=== PATIENT | female | born 1945 | race Caucasian/White ===

== ENCOUNTER 2019-06-01 08:33 | Day surgery (SDC) | payer OTHER, MEDICARE ==
[2019-06-01 08:55] LABS: EOS % 2.1 % (0-4.5); HEMATOCRIT 39.7 % (32.4-45.2); HEMOGLOBIN 13.2 GM/dL (10.7-15.3); LYMPH % 52.8 % (8-40); MCH 30.7 pg (25.7-33.7); MCHC 33.2 g/dl (32.0-36.0); MEAN CELL VOLUME 92.3 fl (80-96); MEAN PLT VOLUME 6.4 fl (7.5-11.1); MONO % 8.2 % (3.8-10.2); NEUT % 35.9 % (42.8-82.8); PLATELET COUNT 231 K/MM3 (134-434); RDW 13.6 % (11.6-15.6); WHITE BLOOD COUNT 6.1 K/mm3 (4.0-10.0)
[2019-06-01 09:06] VITALS: BMI 19.8
[2019-06-01 09:16] LABS: INR 0.88 (0.83-1.09); PROTHROMBIN TIME (PATIENT) 10.4 SEC (9.7-13.0)
[2019-06-01 11:13] VITALS: TEMP 98.3
[2019-06-01 11:54] LABS: ANISOCYTOSIS 0; MACROCYTOSIS 0; PLATELET ESTIMATE NORMAL
[2019-06-01 12:17] VITALS: BP 158/71; PULSE 76
== END 2019-06-01 12:10 | disposition home or self-care (01) ==
LOC: JRADIR 08:33
PROVIDERS: ATTEND Internal Medicine
PROC: 3E0R3BZ Introduction of Anesthetic Agent into Spinal Canal, Percutaneous Approach (ICD-10-PCS; principal; 2019-06-01)
PROC: 3E0R33Z Introduction of Anti-inflammatory into Spinal Canal, Percutaneous Approach (ICD-10-PCS; 2019-06-01)
DX: M54.89 Other dorsalgia (principal); M54.2 Cervicalgia; G89.29 Other chronic pain; M06.9 Rheumatoid arthritis, unspecified
CPT/HCPCS: 36415; 62322; 77003-TC-FY; 85025; 85610

== ENCOUNTER 2019-09-27 10:01 | Emergency (ER) | payer OTHER, MEDICARE ==
[2019-09-27 10:18] VITALS: BP 126/68; PULSE 86; BMI 19.6
[2019-09-27] MEDS ORDERED: DIPHTH,PERTUSS(ACELL),TET 0.5 ML DISP.SYRIN IM ONE ×2 (11:20→11:35)
--- NOTE | 2019-09-27 11:32 | PDOC ---
History of Present Illness - General Chief Complaint: Bite Stated Complaint: CAT SCRATCH Time Seen by Provider: 09/27/19 11:13 - History of Present Illness Initial Comments: 09/27/19 11:28 74-year-old female with a past medical history of hypertension presents for evaluation of a cat scratch on her left wrist. 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 This occurred just prior to arrival. She is not current on tetanus at this time. Past History - Past Medical History Allergies/Adverse Reactions: Allergies Allergy/AdvReac Type Severity Reaction Status Date / Time Antihistamines - Alkylamine AdvReac Intermediate tacchycardi Verified 09/27/19 10:15 a lidocaine AdvReac Intermediate tacchycardi Verified 09/27/19 10:15 a procaine [From Novocain] AdvReac Intermediate tacchycardi Verified 09/27/19 10: 15 a Home Medications: Ambulatory Orders Amlodipine Besylate 2.5 mg PO DAILY 06/01/19 Codeine Phos/ASA/Caffein/Butal [Fiorinal/Codeine #3 (Nf)] 1 ea PO PRN 06/01/19 Esomeprazole Magnesium [Nexium 24Hr] 40 mg PO DAILY 06/01/19 Losartan Potassium 50 mg PO DAILY 06/01/19 [place]pole-3 Fatty Acids [[place]-3] 1,000 mg PO BID 06/01/19 Simvastatin 20 mg PO DAILY 06/01/19 Zolpidem Tartrate [Ambien] 10 mg PO HS 06/01/19 Amox-Tr/K Cl [Augmentin - 875Mg Tablet] 1 tab PO BID #20 tablet 09/27/19 Cancer: Yes (left breast ca 1990,right breast 1994) COPD: No Disorders: Yes (reflux) HTN: Yes Hypercholesterolemia: Yes - Surgical History Appendectomy: Yes - Psycho Social/Smoking Cessation Hx Smoking History: Never smoked Have you smoked in the past 12 months: No If you are a former smoker, when did you quit?: 1990 Hx Alcohol Use: No Drug/Substance Use Hx: No Substance Use Type: None Hx Substance Use Treatment: No Review of Systems - Review of Systems Constitutional: Yes: See HPI *Physical Exam - Vital Signs Last Vital Signs Temp Pulse Resp BP Pulse Ox 86 17 126/68 100 09/27/19 10:16 09/27/19 10:16 09/27/19 10:16 09/27/19 10:16 - Physical Exam 09/27/19 11:29 There is a superficial excoriation on the volar aspect of the left wrist no gross sensorimotor deficit Medical Decision Making - Medical Decision Making 09/27/19 11:30 The area was cleaned with soap and water. No indication of secondary infection at this time. Watchful waiting and a prescription for Augmentin was given. Patient was instructed not to take the medication until she believes there may be an infection she was also advised to follow-up with her primary care doctor. Her tetanus shot was updated today. Discharge - Discharge Information Problems reviewed: Yes Clinical Impression/Diagnosis: Cat scratch Condition: Stable Disposition: HOME - Admission No - Additional Discharge Information Prescriptions: Amox-Tr/K Cl [Augmentin - 875Mg Tablet] 1 tab PO BID #20 tablet - Follow up/Referral Referrals: Xi Soto MD [Staff Physician] - - Patient Discharge Instructions Additional Instructions: Please follow-up with your primary care doctor in 2 to 3 days for further evaluation and treatment options. Without fail please follow-up with your doctor. Return to the emergency room for further issues. You have a prescription for Augmentin. You may hold onto the prescription and start the medication if you feel there is infection developing in the area of the scratch. Please keep the area clean with soap and water and left open to air as much as possible. - Post Discharge Activity
== END 2019-09-27 11:42 | disposition home or self-care (01) ==
LOC: JER 10:01 → JERFT 10:01
PROC: 3E0234Z Introduction of Serum, Toxoid and Vaccine into Muscle, Percutaneous Approach (ICD-10-PCS; principal; 2019-09-27)
DX: S60.812A Abrasion of left wrist, initial encounter (principal); W55.03XA Scratched by cat, initial encounter; Y93.89 Activity, other specified; Y92.89 Other specified places as the place of occurrence of the external cause; Z88.8 Allergy status to other drugs, medicaments and biological substances; I10 Essential (primary) hypertension; K21.9 Gastro-esophageal reflux disease without esophagitis; Z87.891 Personal history of nicotine dependence; E78.00 Pure hypercholesterolemia, unspecified; Z85.3 Personal history of malignant neoplasm of breast
CPT/HCPCS: 90715; 99281-25

== ENCOUNTER 2022-01-31 21:26 | Inpatient (IN) | payer OTHER, MEDICARE ==
[2022-01-31] MEDS ORDERED: diazePAM 5 MG TABLET PO ONE (22:03)
[2022-01-31] MEDS ORDERED: diazePAM 5 MG TABLET ONE (22:11)
[2022-01-31] MEDS ORDERED: ACETAMINOPHEN 1000 MG/100 ML BAG IVPB ONE (22:11)
[2022-01-31] MEDS ORDERED: ACETAMINOPHEN INJECTION 100 ML IVPB ONE (22:12)
[2022-01-31 22:20] LABS: BASO % 0.3 % (0-2.0); EOS % 0.5 % (0-4.5); HEMATOCRIT 38.7 % (32.4-45.2); LYMPH % 12.4 % (8-40); MCH 30.7 pg (25.7-33.7); MCHC 33.6 g/dl (32.0-36.0); MEAN CELL VOLUME 91.5 fl (80-96); MEAN PLT VOLUME 6.2 fl (7.5-11.1); NEUT % 81.8 % (42.8-82.8); PLATELET COUNT 293 10^3/uL (134-434); RBC 4.23 M/mm3 (3.60-5.2); RDW 13.6 % (11.6-15.6); WHITE BLOOD COUNT 11.3 K/mm3 (4.0-10.0)
[2022-01-31 22:43] LABS: ALBUMIN 4.3 g/dl (3.4-5.0); BLOOD UREA NITROGEN 23.5 mg/dL (7-18); CALCIUM 9.5 mg/dL (8.5-10.1); MAGNESIUM 2.3 mg/dL (1.8-2.4)
[2022-01-31 22:46] LABS: CREATININE 0.8 mg/dL (0.55-1.3)
[2022-01-31 22:48] LABS: BILIRUBIN,TOTAL 0.4 mg/dL (0.2-1); TOT PROT 7.8 g/dl (6.4-8.2)
[2022-01-31 22:50] LABS: EPI CELLS 25 /uL (0-25.1); HYALINE CASTS 0 /uL (0-3.1); PH,URINE 8.5 (5.0-8.0); URINE APPEARANCE CLEAR; URINE BACTERIA 95 /uL (0-1359); URINE BILIRUBIN NEGATIVE (NEGATIVE); URINE COLOR YELLOW; URINE GLUCOSE (UA) NEGATIVE (NEGATIVE); URINE KETONE NEGATIVE (NEGATIVE); URINE LEUK ESTERASE 1+ (NEGATIVE); URINE NITRITE NEGATIVE (NEGATIVE); URINE PROTEIN NEGATIVE (NEGATIVE); URINE RBC 18 /uL (0-23.9); URINE UROBILINOGEN 0.2 mg/dL (0.2-1.0); URINE WBC 19 /uL (0-25.8)
[2022-01-31] MEDS ORDERED: morphine CARPU-JECT 2 MG/1 ML DISP.SYRIN IVPUSH ONE (23:44)
[2022-02-01] MEDS ORDERED: morphine CARPU-JECT 2 MG/1 ML DISP.SYRIN IVPUSH ONE
[2022-02-01] MEDS ORDERED: HYDROmorphone HCL CARPU-JECT 2 MG/1 ML DISP.SYRIN IVPUSH ONE (02:26)
[2022-02-01] MEDS ORDERED: HYDROmorphone HCl 2 MG/ML VIAL ONE (02:27)
[2022-02-01] MEDS ORDERED: ACETAMINOPHEN 1000 MG/100 ML BAG IVPB PRN (03:11)
[2022-02-01] MEDS ORDERED: CEFTRIAXONE 1 GM/50 ML BAG ONE (03:21)
[2022-02-01] MEDS ORDERED: SODIUM CHLORIDE 1,000 ML IV SCH (03:30)
[2022-02-01] MEDS: CEFTRIAXONE 1 GM in DEXTROSE 5%-WATER - 50 ML IVPB SCH ×2 (03:30→09:54)
[2022-02-01] MEDS ORDERED: ONDANSETRON 4 MG/2 ML VIAL IVPUSH ONE (04:03)
[2022-02-01] MEDS ORDERED: ONDANSETRON 4 MG/2 ML VIAL ONE (04:03)
[2022-02-01] MEDS ORDERED: ONDANSETRON 4 MG TABLET PO ONE (06:46)
[2022-02-01] MEDS: ACETAMINOPHEN 1000 MG/100 ML BAG IVPB PRN ×2 (08:41→16:02)
[2022-02-01 09:06] LABS: CALCIUM 8.8 mg/dL (8.5-10.1)
[2022-02-01 09:07] LABS: ALBUMIN 3.9 g/dl (3.4-5.0); BLOOD UREA NITROGEN 19.6 mg/dL (7-18); MAGNESIUM 2.3 mg/dL (1.8-2.4)
[2022-02-01 09:10] LABS: PHOSPHOROUS 3.5 mg/dL (2.5-4.9)
[2022-02-01 09:11] LABS: BILIRUBIN,TOTAL 0.3 mg/dL (0.2-1); TOT PROT 7.3 g/dl (6.4-8.2)
[2022-02-01 09:20] LABS: CREATININE 0.7 mg/dL (0.55-1.3)
[2022-02-01] MEDS: ENOXAPARIN NA (PORCINE) 40 MG/0.4 ML DISP.SYRIN SQ SCH (10:59)
[2022-02-01 11:18] LABS: BASO % 0.2 % (0-2.0); EOS % 0.1 % (0-4.5); HEMATOCRIT 38.5 % (32.4-45.2); HEMOGLOBIN 12.9 GM/dL (10.7-15.3); LYMPH % 11.3 % (8-40); MCH 30.6 pg (25.7-33.7); MCHC 33.5 g/dl (32.0-36.0); MEAN CELL VOLUME 91.3 fl (80-96); MONO % 4.2 % (3.8-10.2); NEUT % 84.2 % (42.8-82.8); PLATELET COUNT 292 10^3/uL (134-434); RBC 4.22 M/mm3 (3.60-5.2); RDW 13.3 % (11.6-15.6); WHITE BLOOD COUNT 9.9 K/mm3 (4.0-10.0)
[2022-02-01] MEDS ORDERED: oxyCODONE HCL 5 MG TABLET PO PRN ×2 (12:07→16:05)
[2022-02-01] MEDS: ONDANSETRON 4 MG/2 ML VIAL IVPB PRN (12:37)
[2022-02-01] MEDS ORDERED: HYDROmorphone HCL CARPU-JECT 2 MG/1 ML DISP.SYRIN IVPUSH PRN (16:02)
[2022-02-01] MEDS: HYDROmorphone HCl 2 MG/ML VIAL IVPB PRN (16:41)
[2022-02-01] MEDS: oxyCODONE HCL 5 MG TABLET PO PRN (21:56)
[2022-02-01] MEDS: ATORVASTATIN CA 10 MG TABLET (FP) PO SCH (21:57)
[2022-02-01] MEDS: DOCUSATE SODIUM 100 MG CAPSULE (FP) PO SCH (21:57)
[2022-02-02] MEDS: ACETAMINOPHEN 1000 MG/100 ML BAG IVPB PRN ×2 (01:23→13:56)
[2022-02-02] MEDS: oxyCODONE HCL 5 MG TABLET PO PRN ×2 (02:59→21:06)
[2022-02-02] MEDS ORDERED: cefTRIAXone SODIUM 1 GM VIAL ONE (08:29)
[2022-02-02] MEDS ORDERED: DEXTROSE 5%-WATER - 50 ML IVPB ONE (08:29)
[2022-02-02] MEDS: HYDROmorphone HCl 2 MG/ML VIAL IVPB PRN ×3 (08:40→23:11)
[2022-02-02] MEDS: ENOXAPARIN NA (PORCINE) 40 MG/0.4 ML DISP.SYRIN SQ SCH (09:01)
[2022-02-02] MEDS: CEFTRIAXONE 1 GM in DEXTROSE 5%-WATER - 50 ML IVPB SCH (09:01)
[2022-02-02 09:10] LABS: BASO % 0.6 % (0-2.0); EOS % 0.5 % (0-4.5); HEMATOCRIT 41.4 % (32.4-45.2); HEMOGLOBIN 13.9 GM/dL (10.7-15.3); LYMPH % 19.4 % (8-40); MCH 30.7 pg (25.7-33.7); MCHC 33.7 g/dl (32.0-36.0); MEAN CELL VOLUME 91.3 fl (80-96); MEAN PLT VOLUME 6.9 fl (7.5-11.1); MONO % 6.1 % (3.8-10.2); NEUT % 73.4 % (42.8-82.8); PLATELET COUNT 318 10^3/uL (134-434); RBC 4.54 M/mm3 (3.60-5.2); RDW 13.3 % (11.6-15.6); WHITE BLOOD COUNT 9.9 K/mm3 (4.0-10.0)
[2022-02-02 10:03] LABS: ALBUMIN 3.8 g/dl (3.4-5.0); BLOOD UREA NITROGEN 16.9 mg/dL (7-18); CALCIUM 9.2 mg/dL (8.5-10.1)
[2022-02-02 10:04] LABS: MAGNESIUM 2.2 mg/dL (1.8-2.4); PHOSPHOROUS 3.2 mg/dL (2.5-4.9)
[2022-02-02 10:05] LABS: TOT PROT 7.4 g/dl (6.4-8.2)
[2022-02-02 10:06] LABS: BILIRUBIN,TOTAL 0.6 mg/dL (0.2-1); CREATININE 0.6 mg/dL (0.55-1.3)
[2022-02-02 12:45] VITALS: BMI 17.5
[2022-02-02] MEDS ORDERED: ENOXAPARIN NA (PORCINE) 30 MG/0.3 ML DISP.SYRIN SQ SCH (15:15)
[2022-02-02] MEDS: DOCUSATE SODIUM 100 MG CAPSULE (FP) PO SCH (21:06)
[2022-02-02] MEDS: ATORVASTATIN CA 10 MG TABLET (FP) PO SCH (21:06)
[2022-02-02] MEDS: DEXTROSE 5%-0.45% SALINE 1,000 ML IV SCH (23:37)
[2022-02-03] MEDS: ACETAMINOPHEN 1000 MG/100 ML BAG IVPB PRN (01:19)
[2022-02-03] MEDS: ONDANSETRON 4 MG/2 ML VIAL IVPB PRN (01:24)
[2022-02-03] MEDS: HYDROmorphone HCl 2 MG/ML VIAL IVPB PRN (02:56)
[2022-02-03] MEDS ORDERED: VANCOMYCIN 1,000 MG VIAL (RESTRICTED TO ID ONLY) ONE (08:34)
[2022-02-03 08:53] LABS: HEMATOCRIT 38.2 % (32.4-45.2); MCH 30.9 pg (25.7-33.7); MEAN CELL VOLUME 90.8 fl (80-96); MEAN PLT VOLUME 6.8 fl (7.5-11.1); PLATELET COUNT 299.9 10^3/uL (134-434); RBC 4.21 10^6/uL (3.60-5.2); RDW 13.8 % (11.6-15.6)
[2022-02-03 09:02] LABS: ALBUMIN 3.5 g/dl (3.4-5.0); BILIRUBIN,TOTAL 0.7 mg/dl (0.2-1); CALCIUM 9.1 mg/dl (8.5-10); CREATININE 0.7 mg/dl (0.55-1.3); MAGNESIUM 1.9 mg/dL (1.8-2.4); TOT PROT 6.7 g/dl (6.4-8.2)
[2022-02-03] MEDS ORDERED: ACETAMINOPHEN 1000 MG/100 ML BAG IVPB SCH (09:15)
[2022-02-03] MEDS ORDERED: ENOXAPARIN NA (PORCINE) 40 MG/0.4 ML DISP.SYRIN SQ ONE (09:30)
[2022-02-03] MEDS: ACETAMINOPHEN 1000 MG/100 ML BAG IVPB SCH ×4 (10:22→21:48)
[2022-02-03] MEDS ORDERED: KETOROLAC TROMETHAMINE 15 MG/ML VIAL IVPB ONE (20:07)
[2022-02-03] MEDS: DOCUSATE SODIUM 100 MG CAPSULE (FP) PO SCH (21:49)
[2022-02-03] MEDS: ATORVASTATIN CA 10 MG TABLET (FP) PO SCH (21:50)
[2022-02-04] MEDS: DEXTROSE 5%-0.45% SALINE 1,000 ML IV SCH
[2022-02-04] MEDS: ACETAMINOPHEN 1000 MG/100 ML BAG IVPB SCH ×4 (01:09→18:54)
[2022-02-04] MEDS ORDERED: morphine SULFATE 4 MG/ML VIAL ONE ×2 (05:17→22:15)
[2022-02-04 08:26] LABS: HEMATOCRIT 39.1 % (32.4-45.2); HEMOGLOBIN 13.3 G/dL (10.7-15.3); MCH 31.2 pg (25.7-33.7); MCHC 33.9 g/dl (32.0-36.0); MEAN CELL VOLUME 91.8 fl (80-96); MEAN PLT VOLUME 6.9 fl (7.5-11.1); PLATELET COUNT 284.5 10^3/uL (134-434); RBC 4.26 10^6/uL (3.60-5.2); WHITE BLOOD COUNT 11.3 10^3/uL (4.0-10.8)
[2022-02-04 08:28] LABS: ALBUMIN 3.3 g/dl (3.4-5.0); BILIRUBIN,TOTAL 0.6 mg/dl (0.2-1); CALCIUM 8.9 mg/dl (8.5-10); CREATININE 0.6 mg/dl (0.55-1.3); MAGNESIUM 1.9 mg/dL (1.8-2.4); TOT PROT 6.4 g/dl (6.4-8.2)
[2022-02-04 10:10] LABS: PLATELET ESTIMATE ADEQUATE
[2022-02-04] MEDS ORDERED: ACETAMINOPHEN 1000 MG/100 ML BAG IVPB SCH ×2 (10:15→18:00)
[2022-02-04] MEDS ORDERED: VANCOMYCIN 1,000 MG VIAL (RESTRICTED TO ID ONLY) ONE (13:51)
[2022-02-04] MEDS ORDERED: BUPIVACAINE HCL 50 ML ONE (14:15)
[2022-02-04] MEDS ORDERED: PHENYLEPHRINE HCL 10 MG/1 ML SINGLE DOSE VIAL ONE (14:18)
[2022-02-04] MEDS ORDERED: PROPOFOL 20 ML ONE ×3 (14:23)
[2022-02-04] MEDS ORDERED: MIDAZOLAM HCL 2 MG/2 ML SINGLE DOSE VIAL ONE (14:59)
[2022-02-04] MEDS ORDERED: TRANEXAMIC ACID 1000 MG/10 ML VIAL ONE (15:36)
[2022-02-04] MEDS ORDERED: VANCOMYCIN 1,000 MG VIAL (RESTRICTED TO ID ONLY) IVPB ONE (16:42)
[2022-02-04] MEDS ORDERED: MAGNESIUM HYDROX 2400MG/30ML ORAL SUSPENSION 30 ML CUP PO PRN (17:25)
[2022-02-04] MEDS ORDERED: MAG HYDROX/AL HYDROX/SIMETH 30 ML UNIT-DOSE CUP PO PRN (17:25)
[2022-02-04] MEDS ORDERED: PROMETHAZINE HCL 25 MG/1 ML VIAL IVPUSH PRN (17:27)
[2022-02-04] MEDS ORDERED: HYDROmorphone HCl 2 MG/ML VIAL IVPUSH PRN (17:27)
[2022-02-04] MEDS ORDERED: ONDANSETRON 4 MG/2 ML VIAL IVPUSH PRN (17:27)
[2022-02-04] MEDS ORDERED: HYDROmorphone *PCA* 10MG/50ML DISP.SYRIN PCA SCH (17:30)
[2022-02-04] MEDS ORDERED: LACTATED RINGERS SOLUTION 1,000 ML IV SCH ×2 (17:30)
[2022-02-04] MEDS ORDERED: ONDANSETRON 4 MG/2 ML VIAL IVPB PRN (17:34)
[2022-02-04] MEDS ORDERED: DEXTROSE 5%-0.45% SALINE 1,000 ML IV SCH (17:34)
[2022-02-04] MEDS ORDERED: ACETAMINOPHEN INJECTION 100 ML IVPB ONE (17:35)
[2022-02-04] MEDS ORDERED: DEXTROSE 5%-WATER - 50 ML IVPB ONE ×2 (21:32→23:42)
[2022-02-04] MEDS ORDERED: ceFAZolin SODIUM 1 GM VIAL ONE ×2 (21:32→23:42)
[2022-02-04] MEDS ORDERED: ACETAMINOPHEN 1000 MG/100 ML BAG IVPB PRN (21:39)
[2022-02-04] MEDS: CEFAZOLIN 2 GM in DEXTROSE 5%-WATER - 50 ML IVPB SCH (22:23)
[2022-02-04] MEDS: DOCUSATE SODIUM 100 MG CAPSULE (FP) PO SCH (22:24)
[2022-02-04] MEDS: ATORVASTATIN CA 10 MG TABLET (FP) PO SCH (22:25)
[2022-02-04] MEDS: SENNOSIDES/DOCUSATE COMBO (SENNA PLUS) TABLET (UD) PO SCH (22:25)
[2022-02-05] MEDS: CEFAZOLIN 2 GM in DEXTROSE 5%-WATER - 50 ML IVPB SCH ×2 (01:42→09:51)
[2022-02-05 07:42] LABS: HEMATOCRIT 37.1 % (32.4-45.2); HEMOGLOBIN 12.7 G/dL (10.7-15.3); MCH 31.2 pg (25.7-33.7); MCHC 34.2 g/dl (32.0-36.0); MEAN CELL VOLUME 91.4 fl (80-96); MEAN PLT VOLUME 6.6 fl (7.5-11.1); PLATELET COUNT 256.6 10^3/uL (134-434); RBC 4.06 10^6/uL (3.60-5.2); WHITE BLOOD COUNT 9.7 10^3/uL (4.0-10.8)
[2022-02-05 07:47] LABS: ALBUMIN 3.2 g/dl (3.4-5.0); BILIRUBIN,TOTAL 1.2 mg/dl (0.2-1); CREATININE 0.6 mg/dl (0.55-1.3); MAGNESIUM 1.8 mg/dL (1.8-2.4); TOT PROT 6.1 g/dl (6.4-8.2)
[2022-02-05] MEDS ORDERED: ceFAZolin SODIUM 1 GM VIAL ONE (09:41)
[2022-02-05] MEDS ORDERED: DEXTROSE 5%-WATER - 50 ML IVPB ONE (09:42)
[2022-02-05] MEDS: PANTOPRAZOLE 40 MG TABLET PO SCH (09:51)
[2022-02-05] MEDS: SENNOSIDES/DOCUSATE COMBO (SENNA PLUS) TABLET (UD) PO SCH ×2 (09:51→21:40)
[2022-02-05] MEDS: MULTIVITAMINS (DAILY MVI) TABLET (FP) PO SCH (09:51)
[2022-02-05] MEDS ORDERED: ENOXAPARIN NA (PORCINE) 40 MG/0.4 ML DISP.SYRIN SQ SCH (10:00)
[2022-02-05] MEDS ORDERED: KETOROLAC TROMETHAMINE 15 MG/ML VIAL IVPUSH ONE (10:48)
[2022-02-05] MEDS: ACETAMINOPHEN 1000 MG/100 ML BAG IVPB SCH ×4 (11:16→21:41)
[2022-02-05] MEDS: DOCUSATE SODIUM 100 MG CAPSULE (FP) PO SCH (21:40)
[2022-02-05] MEDS: ATORVASTATIN CA 10 MG TABLET (FP) PO SCH (21:40)
[2022-02-06 06:31] VITALS: TEMP 98.9
[2022-02-06 07:59] VITALS: BP 135/71; PULSE 98
[2022-02-06 08:20] LABS: HEMATOCRIT 33.2 % (32.4-45.2); HEMOGLOBIN 11.5 G/dL (10.7-15.3); MCH 31.9 pg (25.7-33.7); MCHC 34.5 g/dl (32.0-36.0); MEAN CELL VOLUME 92.1 fl (80-96); MEAN PLT VOLUME 7.2 fl (7.5-11.1); PLATELET COUNT 269.4 10^3/uL (134-434); RDW 14.2 % (11.6-15.6); WHITE BLOOD COUNT 10.7 10^3/uL (4.0-10.8)
[2022-02-06] MEDS: SENNOSIDES/DOCUSATE COMBO (SENNA PLUS) TABLET (UD) PO SCH (09:13)
[2022-02-06] MEDS: MULTIVITAMINS (DAILY MVI) TABLET (FP) PO SCH (09:13)
[2022-02-06] MEDS: PANTOPRAZOLE 40 MG TABLET PO SCH (09:13)
[2022-02-06] MEDS ORDERED: ACETAMINOPHEN 500 MG TABLET (FP) PO PRN (09:29)
[2022-02-06] MEDS ORDERED: ASPIRIN 325 MG TABLET PO SCH (10:00)
== END 2022-02-06 12:29 | DRG 521 ==
LOC: JER 21:26 → JERBED 22:04 → UNDOADMIN 22:04 → J6S 02-01 04:41 → FM/S 02-02 22:00
PROVIDERS: ADMIT Internal Medicine; ATTEND Nurse Practitioner Acute Care
PROC: 0SRS0J9 Replacement of Left Hip Joint, Femoral Surface with Synthetic Substitute, Cemented, Open Approach (ICD-10-PCS; principal; 2022-02-04 15:40)
DX: S72.002A Fracture of unspecified part of neck of left femur, initial encounter for closed fracture (principal); E43 Unspecified severe protein-calorie malnutrition; G92.8 Other toxic encephalopathy; N39.0 Urinary tract infection, site not specified; Z68.1 Body mass index [BMI] 19.9 or less, adult; R64 Cachexia; M06.9 Rheumatoid arthritis, unspecified; E78.5 Hyperlipidemia, unspecified; E78.00 Pure hypercholesterolemia, unspecified; K59.00 Constipation, unspecified; W19.XXXA Unspecified fall, initial encounter; Y93.9 Activity, unspecified; Y92.89 Other specified places as the place of occurrence of the external cause; Y99.9 Unspecified external cause status
CPT/HCPCS: 36415; 70450-TC; 71045-TC-FY; 72125-TC; 72170-TC-FY; 72192-TC; 73502-TC-LT-FY; 73521-TC-FY; 80053; 81003; 82962; 83735; 84100; 84443; 84484; 85025; 85027; 86850; 86900; 86901; 86922; 87086; 87804; 88305-TC; 88311-TC; 93005; 93010; 94760; 97116-GP; 97161-GP; 99285-25; C9803-CS; U0003; U0005

== ENCOUNTER 2024-09-02 17:40 | Inpatient (IN) | payer OTHER, MEDICARE ==
[2024-09-02] MEDS: SODIUM CHLORIDE 0.9% 1000 ML INFUS.BAG IV STA (20:10)
[2024-09-02 20:15] LABS: EOS % 0.1 % (0-4.5); HEMATOCRIT 45.6 % (32.4-45.2); HEMOGLOBIN 14.9 GM/dL (10.7-15.3); LYMPH % 6.6 % (8-40); MCH 29.5 pg (25.7-33.7); MCHC 32.7 g/dl (32.0-36.0); MEAN CELL VOLUME 90.3 fl (80-96); MEAN PLT VOLUME 6.9 fl (7.5-11.1); MONO % 3.8 % (3.8-10.2); NEUT % 89.5 % (42.8-82.8); PLATELET COUNT 254 10^3/uL (134-434); RBC 5.05 M/mm3 (3.60-5.2); RDW 13.4 % (11.6-15.6); WHITE BLOOD COUNT 19.1 K/mm3 (4.0-10.0)
[2024-09-02 20:18] LABS: VENOUS BASE EXCESS 1.4 mmol/L (-2-2); VENOUS O2 SATURATION 51.8 % (70-80); VENOUS PCO2 48.7 mmHg (38-52); VENOUS PH 7.371 (7.310-7.410)
[2024-09-02 20:34] LABS: POTASSIUM 4.5 mmol/L (3.5-5.1)
[2024-09-02 20:36] LABS: CALCIUM 10.2 mg/dL (8.5-10.1)
[2024-09-02 20:37] LABS: ALBUMIN 4.2 g/dl (3.4-5.0)
[2024-09-02 20:40] LABS: CREATININE 0.7 mg/dL (0.55-1.3)
[2024-09-02 20:41] LABS: BILIRUBIN,TOTAL 0.8 mg/dL (0.2-1); TOT PROT 8.1 g/dl (6.4-8.2)
[2024-09-02 20:48] LABS: LACTIC ACID 2.5 mmol/L (0.4-2.0)
[2024-09-02 22:20] LABS: INR 1.03 (0.83-1.09); PROTHROMBIN TIME (PATIENT) 11.8 SEC (9.7-13.0)
[2024-09-02] MEDS ORDERED: PIPERACILLIN/TAZOB 4.5 GM 4.5 GM/100 ML BAG IVPB ONE (22:20)
[2024-09-02 22:23] LABS: ACTIVATED PTT 27.6 SECONDS (25.2-36.5)
[2024-09-02 22:54] LABS: EPI CELLS 2 /uL (0-25.1); HYALINE CASTS 0 /uL (0-3.1); URINE APPEARANCE CLEAR; URINE BACTERIA 1 /uL (0-1359); URINE BILIRUBIN NEGATIVE (NEGATIVE); URINE COLOR YELLOW; URINE GLUCOSE (UA) 1+ (NEGATIVE); URINE KETONE 1+ (NEGATIVE); URINE LEUK ESTERASE NEGATIVE (NEGATIVE); URINE NITRITE NEGATIVE (NEGATIVE); URINE PROTEIN 3+ (NEGATIVE); URINE RBC 27 /uL (0-23.9); URINE UROBILINOGEN 0.2 mg/dL (0.2-1.0); URINE WBC 4 /uL (0-25.8)
[2024-09-02] MEDS: PIPERACILLIN/TAZOB 4.5 GM 4.5 GM in DEXTROSE 5%-WATER 100 ML IVPB ONE (22:58)
[2024-09-02] MEDS: levETIRAcetam 500 MG/5 ML INJECTION VIAL IVPB SCH (23:30)
[2024-09-02] MEDS ORDERED: levETIRAcetam 500 MG/5 ML INJECTION VIAL IVPB ONE (23:31)
[2024-09-02] MEDS: NICARDIPINE 25 MG in DEXTROSE 5%-WATER - 240 ML IVPB SCH (23:49)
[2024-09-03] MEDS ORDERED: FENTANYL CITRATE/PF 50 MCG/ML VIAL ONE (00:21)
[2024-09-03] MEDS ORDERED: LORazepam 2 MG/ML SDV VIAL IVPUSH PRN (00:41)
[2024-09-03] MEDS ORDERED: ACETAMINOPHEN 1000 MG/100 ML BAG IVPB PRN (00:43)
[2024-09-03] MEDS: levETIRAcetam 500 MG/5 ML INJECTION VIAL IVPB ONE (00:53)
[2024-09-03] MEDS ORDERED: levETIRAcetam 500 MG/5 ML INJECTION VIAL IVPB ONE (00:57)
[2024-09-03] MEDS: MANNITOL 25% 12.5 GM/50 ML VIAL IVPB ONE (01:25)
[2024-09-03] MEDS: SODIUM CHLORIDE 3% 500 ML/500 ML INFUS.BAG IV ONE ×2 (01:35→03:45)
[2024-09-03] MEDS ORDERED: DIPHTH,PERTUSS(ACELL),TET 0.5 ML DISP.SYRIN IM ONE (01:52)
[2024-09-03] MEDS: DIPHTH,PERTUSS(ACELL),TET 0.5 ML DISP.SYRIN IM ONE (01:55)
[2024-09-03] MEDS: DEXMEDETOMIDINE PREMIX 400 MCG/100 ML BAG IVPB SCH (02:37)
[2024-09-03] MEDS: VANCOMYCIN 1,000 MG in DEXTROSE 5%-WATER - 250 ML IVPB ONE (02:38)
[2024-09-03 07:19] LABS: HEMATOCRIT 38.7 % (32.4-45.2); HEMOGLOBIN 12.7 GM/dL (10.7-15.3); LYMPH % 8.3 % (8-40); MCH 29.8 pg (25.7-33.7); MCHC 32.8 g/dl (32.0-36.0); MEAN PLT VOLUME 7.2 fl (7.5-11.1); MONO % 4.2 % (3.8-10.2); NEUT % 87.5 % (42.8-82.8); PLATELET COUNT 229 10^3/uL (134-434); RBC 4.25 M/mm3 (3.60-5.2); RDW 13.7 % (11.6-15.6); WHITE BLOOD COUNT 17.1 K/mm3 (4.0-10.0)
[2024-09-03 07:21] LABS: POTASSIUM 3.5 mmol/L (3.5-5.1)
[2024-09-03 07:24] LABS: BLOOD UREA NITROGEN 34.5 mg/dL (7-18)
[2024-09-03 07:27] LABS: CREATININE 0.6 mg/dL (0.55-1.3)
[2024-09-03 07:28] LABS: PHOSPHOROUS 2.2 mg/dL (2.5-4.9)
[2024-09-03 07:29] LABS: BILIRUBIN,TOTAL 0.6 mg/dL (0.2-1); TOT PROT 6.4 g/dl (6.4-8.2)
[2024-09-03 07:31] LABS: ALBUMIN 3.2 g/dl (3.4-5.0); CALCIUM 8.6 mg/dL (8.5-10.1)
[2024-09-03] MEDS: MUPIROCIN 2% TOPICAL OINTMENT FOR DECOLONIZATION NS SCH (12:23)
[2024-09-03] MEDS: CHLORHEXIDINE GLUCONATE 4% CLEANSER FOR DECOLONIZATION TP SCH (22:06)
[2024-09-04 06:33] LABS: BASO % 0.1 % (0-2.0); EOS % 0.1 % (0-4.5); HEMATOCRIT 36.7 % (32.4-45.2); HEMOGLOBIN 11.9 GM/dL (10.7-15.3); LYMPH % 11.6 % (8-40); MCH 29.7 pg (25.7-33.7); MCHC 32.4 g/dl (32.0-36.0); MEAN CELL VOLUME 91.7 fl (80-96); NEUT % 82.2 % (42.8-82.8); PLATELET COUNT 241 10^3/uL (134-434); RBC 4.01 M/mm3 (3.60-5.2); RDW 13.5 % (11.6-15.6); WHITE BLOOD COUNT 16.1 K/mm3 (4.0-10.0)
[2024-09-04 07:25] LABS: POTASSIUM 3.3 mmol/L (3.5-5.1)
[2024-09-04 07:27] LABS: ALBUMIN 3.2 g/dl (3.4-5.0); BLOOD UREA NITROGEN 42.1 mg/dL (7-18); CALCIUM 8.7 mg/dL (8.5-10.1); MAGNESIUM 2.3 mg/dL (1.8-2.4)
[2024-09-04 07:30] LABS: CREATININE 0.6 mg/dL (0.55-1.3)
[2024-09-04 07:32] LABS: BILIRUBIN,TOTAL 0.7 mg/dL (0.2-1); TOT PROT 6.3 g/dl (6.4-8.2)
[2024-09-04] MEDS: KCL 10 MEQ IVPB 10 MEQ/100 ML INFUS.BAG IVPB SCH (13:59)
[2024-09-04] MEDS ORDERED: LABETALOL HCL 5 MG/1 ML (100MG/20 ML VIAL) ONE (16:13)
[2024-09-04] MEDS: LABETALOL HCL 20 MG/4 ML VIAL IVPUSH ONE (16:17)
[2024-09-05] MEDS ORDERED: hydrALAZINE HCL 20 MG/ML VIAL IVPUSH PRN (01:56)
[2024-09-05] MEDS: hydrALAZINE HCL 20 MG/ML VIAL IVPUSH PRN (02:21)
[2024-09-05 07:46] LABS: HEMATOCRIT 38.8 % (32.4-45.2); HEMOGLOBIN 12.6 GM/dL (10.7-15.3); MCH 29.7 pg (25.7-33.7); MCHC 32.3 g/dl (32.0-36.0); PLATELET COUNT 259 10^3/uL (134-434); RBC 4.22 M/mm3 (3.60-5.2); RDW 13.9 % (11.6-15.6); WHITE BLOOD COUNT 14.6 K/mm3 (4.0-10.0)
[2024-09-05 08:06] LABS: POTASSIUM 3.8 mmol/L (3.5-5.1)
[2024-09-05 08:14] LABS: ALBUMIN 3.3 g/dl (3.4-5.0); BLOOD UREA NITROGEN 49.4 mg/dL (7-18); CALCIUM 9.4 mg/dL (8.5-10.1); MAGNESIUM 2.5 mg/dL (1.8-2.4)
[2024-09-05 08:18] LABS: CREATININE 0.7 mg/dL (0.55-1.3)
[2024-09-05 08:19] LABS: BILIRUBIN,TOTAL 0.7 mg/dL (0.2-1)
[2024-09-05 08:20] LABS: TOT PROT 6.6 g/dl (6.4-8.2)
[2024-09-05 08:57] LABS: ANISOCYTOSIS 0; MACROCYTOSIS 0
[2024-09-05] MEDS: PANTOPRAZOLE SODIUM 40 MG VIAL IVPUSH SCH (09:43)
[2024-09-05 10:22] LABS: PHOSPHOROUS 3.4 mg/dL (2.5-4.9)
[2024-09-05] MEDS: NICARDIPINE 25 MG in DEXTROSE 5%-WATER - 240 ML IVPB SCH (11:27)
[2024-09-05] MEDS: DEXTROSE 5%-LACTATED RINGERS 1,000 ML IV SCH (11:30)
[2024-09-05] MEDS: PIPERACILLIN/TAZOB 3.375 GM 3.375 GM in DEXTROSE 5%-WATER - 50 ML IVPB SCH ×2 (14:15→16:47)
[2024-09-05 16:14] VITALS: BMI 15.6
[2024-09-05] MEDS: PIPERACILLIN/TAZOB 3.375 GM 50 ML IVPB SCH (17:12)
[2024-09-05] MEDS: INSULIN ASPART SLIDING SCALE (NOVOLOG) 1 VIAL SQ SCH (17:21)
[2024-09-06] MEDS ORDERED: SODIUM CHLORIDE 0.45% 1,000 ML IV SCH (07:00)
[2024-09-06 07:27] LABS: HEMATOCRIT 37.9 % (32.4-45.2); MCH 29.3 pg (25.7-33.7); MCHC 31.8 g/dl (32.0-36.0); MEAN CELL VOLUME 92.4 fl (80-96); MEAN PLT VOLUME 6.7 fl (7.5-11.1); PLATELET COUNT 266 10^3/uL (134-434); RDW 14.1 % (11.6-15.6); WHITE BLOOD COUNT 12.5 K/mm3 (4.0-10.0)
[2024-09-06 07:40] LABS: POTASSIUM 3.3 mmol/L (3.5-5.1)
[2024-09-06 07:45] LABS: ALBUMIN 2.9 g/dl (3.4-5.0)
[2024-09-06 07:46] LABS: BLOOD UREA NITROGEN 47.4 mg/dL (7-18); CALCIUM 8.8 mg/dL (8.5-10.1); CREATININE 0.9 mg/dL (0.55-1.3); MAGNESIUM 2.3 mg/dL (1.8-2.4)
[2024-09-06 07:47] LABS: PHOSPHOROUS 1.7 mg/dL (2.5-4.9)
[2024-09-06 07:49] LABS: BILIRUBIN,TOTAL 0.7 mg/dL (0.2-1)
[2024-09-06] MEDS: POTASSIUM CHLORIDE ORAL LIQUID 20 MEQ/15 ML PO ONE (09:00)
[2024-09-06] MEDS: NAPH,MB-DB/K PH,MBDB POWDER PACKET PO ONE (09:00)
[2024-09-06] MEDS: SODIUM CHLORIDE 0.45% 1,000 ML IV SCH (09:00)
[2024-09-06 10:07] LABS: ANISOCYTOSIS 0; HELMET CELLS 0; HOWELL-JOLLY BODIES 0; MACROCYTOSIS 0; OVALOCYTE 0; ROULEAU 0; SICKELED CELLS 0; TARGET CELLS 0; TEAR DROP CELLS 0; TOXIC GRANULATION 0
[2024-09-06] MEDS: KCL 10 MEQ IVPB 10 MEQ/100 ML INFUS.BAG IVPB SCH (11:13)
[2024-09-06] MEDS ORDERED: LISINOPRIL 10 MG TABLET PO SCH (13:07)
[2024-09-06] MEDS ORDERED: DEXTROSE 50%-WATER - 25 GM/50 ML VIAL IVPUSH PRN (14:01)
[2024-09-06] MEDS: ACETAMINOPHEN 1000 MG/100 ML BAG IVPB PRN (14:34)
[2024-09-06] MEDS: LISINOPRIL 10 MG TABLET PO ONE ×2 (14:36→18:30)
[2024-09-06] MEDS ORDERED: IBUPROFEN 200 MG TABLET PO PRN (14:40)
[2024-09-06] MEDS: ACETAMINOPHEN 325 MG TABLET (FP) PO SCH (15:01)
[2024-09-06] MEDS ORDERED: morphine CARPU-JECT 2 MG/1 ML DISP.SYRIN IM PRN (15:20)
[2024-09-06 16:37] LABS: POTASSIUM 4.2 mmol/L (3.5-5.1)
[2024-09-06 16:47] LABS: BLOOD UREA NITROGEN 39.1 mg/dL (7-18); CALCIUM 8.3 mg/dL (8.5-10.1)
[2024-09-06 16:50] LABS: CREATININE 0.7 mg/dL (0.55-1.3)
[2024-09-06] MEDS: ATORVASTATIN CA 10 MG TABLET (FP) PO SCH (21:19)
[2024-09-07 07:34] LABS: POTASSIUM 4.1 mmol/L (3.5-5.1)
[2024-09-07] MEDS ORDERED: LISINOPRIL 20 MG TABLET PO SCH (07:38)
[2024-09-07 07:39] LABS: CALCIUM 8.5 mg/dL (8.5-10.1)
[2024-09-07 07:40] LABS: ALBUMIN 2.7 g/dl (3.4-5.0); BLOOD UREA NITROGEN 32.9 mg/dL (7-18)
[2024-09-07 07:42] LABS: CREATININE 0.5 mg/dL (0.55-1.3)
[2024-09-07 07:44] LABS: BILIRUBIN,TOTAL 0.4 mg/dL (0.2-1); TOT PROT 5.8 g/dl (6.4-8.2)
[2024-09-07 08:01] LABS: HEMATOCRIT 36.4 % (32.4-45.2); HEMOGLOBIN 11.8 GM/dL (10.7-15.3); MCH 29.7 pg (25.7-33.7); MCHC 32.5 g/dl (32.0-36.0); MEAN CELL VOLUME 91.5 fl (80-96); MEAN PLT VOLUME 7.2 fl (7.5-11.1); PLATELET COUNT 252 10^3/uL (134-434); RBC 3.98 M/mm3 (3.60-5.2); RDW 13.8 % (11.6-15.6); WHITE BLOOD COUNT 13.5 K/mm3 (4.0-10.0)
[2024-09-07] MEDS ORDERED: LISINOPRIL 10 MG TABLET PO SCH ×2 (10:00→12:06)
[2024-09-07 10:06] LABS: ANISOCYTOSIS 0; HELMET CELLS 0; HOWELL-JOLLY BODIES 0; MACROCYTOSIS 0; OVALOCYTE 0; ROULEAU 0; SICKELED CELLS 0; TARGET CELLS 0; TEAR DROP CELLS 0; TOXIC GRANULATION 0
[2024-09-07] MEDS: LISINOPRIL 20 MG TABLET PO SCH (10:07)
[2024-09-08 10:47] LABS: HEMATOCRIT 38.8 % (32.4-45.2); HEMOGLOBIN 12.7 GM/dL (10.7-15.3); MCH 29.8 pg (25.7-33.7); MCHC 32.8 g/dl (32.0-36.0); MEAN CELL VOLUME 90.6 fl (80-96); MEAN PLT VOLUME 7.2 fl (7.5-11.1); PLATELET COUNT 287 10^3/uL (134-434); RBC 4.28 M/mm3 (3.60-5.2); WHITE BLOOD COUNT 13.8 K/mm3 (4.0-10.0)
[2024-09-08 11:19] LABS: POTASSIUM 4.9 mmol/L (3.5-5.1)
[2024-09-08 11:27] LABS: CALCIUM 8.9 mg/dL (8.5-10.1)
[2024-09-08 11:28] LABS: ALBUMIN 2.7 g/dl (3.4-5.0); BLOOD UREA NITROGEN 26.8 mg/dL (7-18)
[2024-09-08 11:30] LABS: CREATININE 0.5 mg/dL (0.55-1.3)
[2024-09-08 11:31] LABS: PHOSPHOROUS 3.6 mg/dL (2.5-4.9)
[2024-09-08 11:32] LABS: BILIRUBIN,TOTAL 0.4 mg/dL (0.2-1); TOT PROT 6.1 g/dl (6.4-8.2)
[2024-09-09 08:29] LABS: POTASSIUM 5.8 mmol/L (3.5-5.1)
[2024-09-09 08:32] LABS: CALCIUM 8.8 mg/dL (8.5-10.1)
[2024-09-09 08:33] LABS: ALBUMIN 2.7 g/dl (3.4-5.0)
[2024-09-09 08:36] LABS: BILIRUBIN,TOTAL 0.5 mg/dL (0.2-1); CREATININE 0.6 mg/dL (0.55-1.3); PHOSPHOROUS 4.8 mg/dL (2.5-4.9)
[2024-09-09 12:37] LABS: HEMATOCRIT 38.2 % (32.4-45.2); HEMOGLOBIN 12.2 GM/dL (10.7-15.3); MCH 29.3 pg (25.7-33.7); MEAN CELL VOLUME 91.6 fl (80-96); MEAN PLT VOLUME 6.8 fl (7.5-11.1); PLATELET COUNT 313 10^3/uL (134-434); RBC 4.17 M/mm3 (3.60-5.2); RDW 13.8 % (11.6-15.6); WHITE BLOOD COUNT 12.2 K/mm3 (4.0-10.0)
[2024-09-10] MEDS: metoPROLOL SUCCINATE 25 MG TAB.SR.24H (FP) PO SCH (17:04)
[2024-09-10] MEDS: SODIUM ZIRCONIUM CYCLOSILICATE (LOKELMA) 5 GM PACKET PO SCH (17:05)
[2024-09-10] MEDS: ACETAMINOPHEN 325 MG TABLET (FP) PO SCH (21:18)
[2024-09-11 07:43] LABS: BASO % 0.4 % (0-2.0); EOS % 1.9 % (0-4.5); HEMATOCRIT 36.7 % (32.4-45.2); LYMPH % 18.3 % (8-40); MCHC 32.8 g/dl (32.0-36.0); MEAN CELL VOLUME 91.4 fl (80-96); MEAN PLT VOLUME 6.5 fl (7.5-11.1); MONO % 6.6 % (3.8-10.2); NEUT % 72.8 % (42.8-82.8); PLATELET COUNT 418 10^3/uL (134-434); RBC 4.01 M/mm3 (3.60-5.2); RDW 13.6 % (11.6-15.6); WHITE BLOOD COUNT 12.5 K/mm3 (4.0-10.0)
[2024-09-11 08:06] LABS: POTASSIUM 4.1 mmol/L (3.5-5.1)
[2024-09-11 08:12] LABS: ALBUMIN 2.9 g/dl (3.4-5.0)
[2024-09-11 08:15] LABS: CREATININE 0.6 mg/dL (0.55-1.3); PHOSPHOROUS 3.4 mg/dL (2.5-4.9)
[2024-09-11 08:16] LABS: BILIRUBIN,TOTAL 0.6 mg/dL (0.2-1)
[2024-09-11] MEDS ORDERED: LORazepam 2 MG/ML SDV VIAL IVPUSH PRN (16:16)
[2024-09-11] MEDS ORDERED: ACETAMINOPHEN 1000 MG/100 ML BAG IVPB PRN (16:41)
[2024-09-11] MEDS: SODIUM CHLORIDE 0.45% 1,000 ML IV SCH (17:16)
[2024-09-12 07:18] LABS: HEMATOCRIT 35.9 % (32.4-45.2); HEMOGLOBIN 11.7 GM/dL (10.7-15.3); MCH 29.8 pg (25.7-33.7); MCHC 32.6 g/dl (32.0-36.0); MEAN CELL VOLUME 91.4 fl (80-96); MEAN PLT VOLUME 6.8 fl (7.5-11.1); PLATELET COUNT 467 10^3/uL (134-434); RBC 3.93 M/mm3 (3.60-5.2); RDW 13.6 % (11.6-15.6); WHITE BLOOD COUNT 20.1 K/mm3 (4.0-10.0)
[2024-09-12 07:32] LABS: POTASSIUM 4.2 mmol/L (3.5-5.1)
[2024-09-12 07:36] LABS: ALBUMIN 2.9 g/dl (3.4-5.0); BLOOD UREA NITROGEN 25.1 mg/dL (7-18); CALCIUM 8.8 mg/dL (8.5-10.1); MAGNESIUM 2.1 mg/dL (1.8-2.4)
[2024-09-12 07:40] LABS: CREATININE 0.7 mg/dL (0.55-1.3)
[2024-09-12 07:41] LABS: BILIRUBIN,TOTAL 0.5 mg/dL (0.2-1); TOT PROT 6.1 g/dl (6.4-8.2)
[2024-09-12 09:34] LABS: ANISOCYTOSIS 0; HELMET CELLS 0; HOWELL-JOLLY BODIES 0; MACROCYTOSIS 0; OVALOCYTE 0; ROULEAU 0; SICKELED CELLS 0; TARGET CELLS 0; TEAR DROP CELLS 0; TOXIC GRANULATION 0
[2024-09-12] MEDS: SODIUM CHLORIDE 0.9% 250 ML INFUS.BAG IV ONE (14:51)
[2024-09-12] MEDS: SODIUM CHLORIDE 0.9% 500 ML INFUS.BAG IV ONE (15:20)
[2024-09-13] MEDS: METOPROLOL TARTRATE 5 MG/5 ML VIAL IVPUSH ONE (03:20)
[2024-09-13] MEDS: ACETAMINOPHEN 1000 MG/100 ML BAG IVPB ONE ×2 (03:22→03:28)
[2024-09-13] MEDS: metoPROLOL SUCCINATE 25 MG TAB.SR.24H (FP) PO ONE (03:28)
[2024-09-13 07:56] LABS: HEMATOCRIT 33.2 % (32.4-45.2); HEMOGLOBIN 11.1 GM/dL (10.7-15.3); MCH 30.4 pg (25.7-33.7); MCHC 33.4 g/dl (32.0-36.0); MEAN CELL VOLUME 91.2 fl (80-96); MEAN PLT VOLUME 6.4 fl (7.5-11.1); PLATELET COUNT 451 10^3/uL (134-434); RBC 3.65 M/mm3 (3.60-5.2); RDW 14.3 % (11.6-15.6)
[2024-09-13 08:16] LABS: CALCIUM 8.5 mg/dL (8.5-10.1)
[2024-09-13 08:17] LABS: ALBUMIN 2.6 g/dl (3.4-5.0); BLOOD UREA NITROGEN 28.2 mg/dL (7-18); MAGNESIUM 2.1 mg/dL (1.8-2.4)
[2024-09-13 08:19] LABS: CREATININE 0.6 mg/dL (0.55-1.3); PHOSPHOROUS 4.4 mg/dL (2.5-4.9)
[2024-09-13 08:21] LABS: BILIRUBIN,TOTAL 0.6 mg/dL (0.2-1); TOT PROT 5.7 g/dl (6.4-8.2)
[2024-09-13] MEDS: levETIRAcetam 500 MG/5 ML INJECTION VIAL IVPB SCH (11:15)
[2024-09-13] MEDS: PANTOPRAZOLE SODIUM 40 MG VIAL IVPUSH SCH (11:15)
[2024-09-13] MEDS: INSULIN ASPART SLIDING SCALE (NOVOLOG) 1 VIAL SQ SCH (12:01)
[2024-09-13 14:54] LABS: ARTERIAL BLD GAS O2 SATURATION 96.9 % (95-98); ARTERIAL BLOOD GAS BASE EXCESS 0.4 mmol/L (-2-2); ARTERIAL BLOOD GAS PO2 85.9 mmHg (80-100)
[2024-09-13 14:55] LABS: ALLENS TEST POSITIVE
[2024-09-13] MEDS: DEXTROSE 5%-NORMAL SALINE 1,000 ML IV SCH (17:49)
[2024-09-13] MEDS: ATORVASTATIN CA 10 MG TABLET (FP) PO SCH (22:56)
[2024-09-14 07:52] LABS: HEMATOCRIT 33.2 % (32.4-45.2); HEMOGLOBIN 10.9 GM/dL (10.7-15.3); MCHC 32.8 g/dl (32.0-36.0); MEAN CELL VOLUME 91.4 fl (80-96); MEAN PLT VOLUME 6.6 fl (7.5-11.1); PLATELET COUNT 516 10^3/uL (134-434); RBC 3.63 M/mm3 (3.60-5.2); RDW 13.9 % (11.6-15.6); WHITE BLOOD COUNT 13.7 K/mm3 (4.0-10.0)
[2024-09-14 08:13] LABS: POTASSIUM 4.2 mmol/L (3.5-5.1)
[2024-09-14 08:23] LABS: ALBUMIN 2.8 g/dl (3.4-5.0); BLOOD UREA NITROGEN 24.2 mg/dL (7-18); CALCIUM 8.8 mg/dL (8.5-10.1); MAGNESIUM 2.1 mg/dL (1.8-2.4)
[2024-09-14 08:26] LABS: CREATININE 0.6 mg/dL (0.55-1.3)
[2024-09-14 08:27] LABS: BILIRUBIN,TOTAL 0.5 mg/dL (0.2-1)
[2024-09-14 08:28] LABS: TOT PROT 6.2 g/dl (6.4-8.2)
[2024-09-14 15:04] LABS: EPI CELLS 26 /uL (0-25.1); HYALINE CASTS 58 /uL (0-3.1); PH,URINE 5.5 (5.0-8.0); URINE APPEARANCE CLEAR; URINE BACTERIA 754 /uL (0-1359); URINE BILIRUBIN NEGATIVE (NEGATIVE); URINE COLOR YELLOW; URINE GLUCOSE (UA) NEGATIVE (NEGATIVE); URINE KETONE TRACE (NEGATIVE); URINE LEUK ESTERASE 1+ (NEGATIVE); URINE NITRITE NEGATIVE (NEGATIVE); URINE PROTEIN NEGATIVE (NEGATIVE); URINE RBC 6 /uL (0-23.9); URINE UROBILINOGEN 0.2 mg/dL (0.2-1.0); URINE WBC 236 /uL (0-25.8)
[2024-09-14] MEDS ORDERED: LORazepam 2 MG/ML SDV VIAL IVPUSH PRN (15:21)
[2024-09-14] MEDS: DEXTROSE 5%-NORMAL SALINE 1,000 ML IV SCH (15:59)
[2024-09-14] MEDS: INSULIN ASPART SLIDING SCALE (NOVOLOG) 1 VIAL SQ SCH (16:20)
[2024-09-14] MEDS: metoPROLOL SUCCINATE 25 MG TAB.SR.24H (FP) PO SCH (22:18)
[2024-09-14] MEDS: MIRTAZAPINE 15 MG TABLET (FP) PO SCH (22:18)
[2024-09-14] MEDS: ATORVASTATIN CA 10 MG TABLET (FP) PO SCH (22:18)
[2024-09-14] MEDS: levETIRAcetam 500 MG/5 ML INJECTION VIAL IVPB SCH (22:19)
[2024-09-15] MEDS: PANTOPRAZOLE SODIUM 40 MG VIAL IVPUSH SCH (09:10)
[2024-09-15 09:47] LABS: HEMATOCRIT 33.5 % (32.4-45.2); HEMOGLOBIN 10.8 GM/dL (10.7-15.3); MCH 29.5 pg (25.7-33.7); MCHC 32.2 g/dl (32.0-36.0); MEAN CELL VOLUME 91.7 fl (80-96); MEAN PLT VOLUME 6.8 fl (7.5-11.1); PLATELET COUNT 536 10^3/uL (134-434); RBC 3.66 M/mm3 (3.60-5.2); RDW 13.8 % (11.6-15.6); WHITE BLOOD COUNT 11.5 K/mm3 (4.0-10.0)
[2024-09-15 10:12] LABS: POTASSIUM 4.1 mmol/L (3.5-5.1)
[2024-09-15 10:14] LABS: ALBUMIN 2.6 g/dl (3.4-5.0); CALCIUM 8.7 mg/dL (8.5-10.1)
[2024-09-15 10:15] LABS: BLOOD UREA NITROGEN 13.4 mg/dL (7-18)
[2024-09-15 10:17] LABS: CREATININE 0.5 mg/dL (0.55-1.3)
[2024-09-15 10:18] LABS: PHOSPHOROUS 3.1 mg/dL (2.5-4.9)
[2024-09-15 10:19] LABS: BILIRUBIN,TOTAL 0.5 mg/dL (0.2-1); TOT PROT 6.1 g/dl (6.4-8.2)
[2024-09-16 08:54] LABS: HEMATOCRIT 33.3 % (32.4-45.2); HEMOGLOBIN 10.8 GM/dL (10.7-15.3); MCH 29.5 pg (25.7-33.7); MCHC 32.4 g/dl (32.0-36.0); MEAN CELL VOLUME 91.1 fl (80-96); MEAN PLT VOLUME 6.3 fl (7.5-11.1); PLATELET COUNT 582 10^3/uL (134-434); RBC 3.66 M/mm3 (3.60-5.2); RDW 13.2 % (11.6-15.6); WHITE BLOOD COUNT 12.2 K/mm3 (4.0-10.0)
[2024-09-16 09:09] LABS: POTASSIUM 3.8 mmol/L (3.5-5.1)
[2024-09-16 09:14] LABS: ALBUMIN 2.7 g/dl (3.4-5.0); BLOOD UREA NITROGEN 9.3 mg/dL (7-18); CALCIUM 8.9 mg/dL (8.5-10.1); MAGNESIUM 1.9 mg/dL (1.8-2.4)
[2024-09-16 09:17] LABS: CREATININE 0.5 mg/dL (0.55-1.3); PHOSPHOROUS 3.1 mg/dL (2.5-4.9)
[2024-09-16 09:18] LABS: BILIRUBIN,TOTAL 0.6 mg/dL (0.2-1)
[2024-09-17 11:18] LABS: POTASSIUM 3.8 mmol/L (3.5-5.1)
[2024-09-17 11:19] LABS: HEMATOCRIT 29.2 % (32.4-45.2); HEMOGLOBIN 9.8 GM/dL (10.7-15.3); MCH 30.5 pg (25.7-33.7); MCHC 33.6 g/dl (32.0-36.0); MEAN CELL VOLUME 90.7 fl (80-96); MEAN PLT VOLUME 6.1 fl (7.5-11.1); PLATELET COUNT 487 10^3/uL (134-434); RBC 3.22 M/mm3 (3.60-5.2); RDW 13.4 % (11.6-15.6); WHITE BLOOD COUNT 8.9 K/mm3 (4.0-10.0)
[2024-09-17 11:50] LABS: ALBUMIN 2.3 g/dl (3.4-5.0)
[2024-09-17 11:51] LABS: BLOOD UREA NITROGEN 12.7 mg/dL (7-18); CALCIUM 8.4 mg/dL (8.5-10.1); MAGNESIUM 1.8 mg/dL (1.8-2.4)
[2024-09-17 11:53] LABS: CREATININE 0.5 mg/dL (0.55-1.3); PHOSPHOROUS 3.4 mg/dL (2.5-4.9)
[2024-09-17 11:54] LABS: BILIRUBIN,TOTAL 0.6 mg/dL (0.2-1); TOT PROT 5.4 g/dl (6.4-8.2)
[2024-09-17 12:32] VITALS: RESP 16
[2024-09-17 14:31] VITALS: BP 127/67; PULSE 86; TEMP 98.4
== END 2024-09-17 18:44 | disposition hospice, inpatient (51) | DRG 964 ==
LOC: JER 17:40 → JERBED 23:59 → JICU 09-03 02:24 → J4W 09-09 20:42 → J6S 09-14 15:15
PROVIDERS: ADMIT Internal Medicine Pulmonary Disease; ATTEND Internal Medicine
PROC: 4A133B1 Monitoring of Arterial Pressure, Peripheral, Percutaneous Approach (ICD-10-PCS; principal; 2024-09-03)
PROC: 4A133J1 Monitoring of Arterial Pulse, Peripheral, Percutaneous Approach (ICD-10-PCS; 2024-09-03)
DX: S06.6X0A Traumatic subarachnoid hemorrhage without loss of consciousness, initial encounter (principal); E44.0 Moderate protein-calorie malnutrition; S72.001A Fracture of unspecified part of neck of right femur, initial encounter for closed fracture; I24.89 Other forms of acute ischemic heart disease; R64 Cachexia; Z68.1 Body mass index [BMI] 19.9 or less, adult; I16.1 Hypertensive emergency; E87.0 Hyperosmolality and hypernatremia; S06.5XAA Traumatic subdural hemorrhage with loss of consciousness status unknown, initial encounter; M06.9 Rheumatoid arthritis, unspecified; I10 Essential (primary) hypertension; E78.00 Pure hypercholesterolemia, unspecified; E78.5 Hyperlipidemia, unspecified; W19.XXXA Unspecified fall, initial encounter; Y93.9 Activity, unspecified; Y92.099 Unspecified place in other non-institutional residence as the place of occurrence of the external cause; Y99.9 Unspecified external cause status
CPT/HCPCS: 0241U-QW; 36415; 36600; 70450-TC; 70496-TC; 70498-TC; 71045-TC-FY; 72125-TC; 72170-TC-FY; 73502-TC-RT-FY; 73521-TC-FY; 80048; 80053; 80061; 81003; 82140; 82550; 82553; 82803; 82962; 83605; 83735; 84100; 84439; 84443; 84484; 85025; 85027; 85610; 85730; 86850; 86900; 86901; 87040; 87086; 87481; 90715; 93005; 93010; 93306-TC; 95816; 97162-GP; 99285-25; J0131